=== PATIENT | male | born 1990 | race African-American/Black ===

== ENCOUNTER 2017-10-02 09:58 | Emergency (ER) | payer SELFPAY ==
[~2017-10-02] VITALS: Ht 193 cm; Wt 77.1 kg
[2017-10-02 10:15] VITALS: BP 146/78
[2017-10-02 11:11] LABS: Albumin 4.4 g/dL (3.4-5.0); BUN/Creatinine Ratio 7.8; Calcium 8.8 mg/dL (8.5-10.1)
[2017-10-02 11:21] LABS: Basophils # (auto) 0 uL; Basophils % (auto) 0.7 % (0.0-2.0); Eosinophils # (auto) 0.1 uL; Eosinophils % (auto) 2.7 % (0.0-7.0); Hematocrit 46.4 % (41.0-53.0); Hemoglobin 15.6 g/dL (13.5-17.5); Lymphocytes # (auto) 1.7 uL; Lymphocytes % (auto) 33.8 % (10.0-50.0); Mean Corpuscular Hemoglobin 31.8 pg (28.0-32.0); Mean Corpuscular Hgb Conc. 33.6 g/dL (32.0-36.0); Mean Corpuscular Volume 94.8 fL (80.0-100.0); Monocytes # (auto) 0.5 uL; Monocytes % (auto) 10.2 % (0.0-12.0); Neutrophils # (auto) 2.7 uL; Neutrophils % (auto) 52.6 % (37.0-80.0); Platelet Count (auto) 200 10^3/uL (140-450); Red Cell Distribution Width 14.1 % (11.8-14.3)
== END 2017-10-02 12:01 | disposition home or self-care (01) ==
LOC: ER 10:04
DX: Z02.83 Encounter for blood-alcohol and blood-drug test (principal)
CPT/HCPCS: 36415; 80053; 85025